=== PATIENT | female | born 1990 | race Caucasian/White ===

== ENCOUNTER 2022-04-15 14:02 | Inpatient (IN) | payer OTHER ==
[2022-04-15] MEDS ORDERED: ACETAMINOPHEN TAB 500 MG TAB PO STA (15:56)
[2022-04-15] MEDS ORDERED: ONDANSETRON 4 MG/2 ML VIAL IVP STA (15:57)
[2022-04-15] MEDS ORDERED: cefTRIAXone IN SWFI 1,000 MG/10 ML SYRINGE IVP STA (16:00)
[2022-04-15] MEDS ORDERED: CLINDAMYCIN 900 MG in DEXTROSE 5% IN WATER 50 ML IVPB STA ×2 (16:12)
[2022-04-15 17:25] LABS: Basophils % (A) 0 %; Eosinophils # (A) 0.1 k/uL (0-0.7); Eosinophils % (A) 1 %; HCT 37.5 % (34.0-46.0); HGB 13.4 gm/dL (11.4-16.0); Lymphocytes % (A) 11 %; MCH 32.7 pg (25.0-35.0); MCHC 35.9 g/dL (31.0-37.0); Mean Platelet Volume 7.3; Monocytes # (A) 0.4 k/uL (0-1.0); Monocytes % (A) 5 %; Neutrophils # (A) 6.7 k/uL (1.3-7.7); Neutrophils % (A) 80 %; Platelet Count 276 k/uL (150-450); RBC 4.12 m/uL (3.80-5.40); WBC 8.4 k/uL (3.8-10.6)
[2022-04-15 17:29] LABS: Appearance,Urine Clear (Clear); Bilirubin,Urine Negative (Negative); Blood,Urine Small (Negative); Color,Urine Yellow; Glucose,Urine (UA) Negative (Negative); Ketones,Urine Negative (Negative); Leukocyte Esterase,Urine Negative (Negative); Mucus,Urine Few /hpf; Nitrite,Urine Negative (Negative); Protein,Urine Trace (Negative); RBC,Urine 6 /hpf (0-5); Specific Gravity,Urine 1.027 (1.001-1.035); Squamous Epithelial Cell,Urine 5 /hpf (0-4); Urobilinogen,Urine <2.0 mg/dL (<2.0); WBC,Urine 1 /hpf (0-5)
[2022-04-15 17:38] LABS: ALT 14 U/L (4-34); AST 20 U/L (14-36); African American GFR (CKD) >90 (>60 ml/min/1.73 sqM); Albumin 3.7 g/dL (3.5-5.0); Alkaline Phosphatase 50 U/L (38-126); Anion Gap 7 mmol/L; Blood Urea Nitrogen 9 mg/dL (7-17); Calcium 8.5 mg/dL (8.4-10.2); Carbon Dioxide 21 mmol/L (22-30); Chloride 107 mmol/L (98-107); Glucose 85 mg/dL (74-99); Non-African American GFR(CKD) >90 (>60 ml/min/1.73 sqM); Potassium 3.6 mmol/L (3.5-5.1); Sodium 135 mmol/L (137-145); Total Bilirubin 0.4 mg/dL (0.2-1.3); Total Protein 6.2 g/dL (6.3-8.2)
--- NOTE | 2022-04-15 18:18 | ED ---
Skin/Abscess/FB HPI - General Chief complaint: Skin/Abscess/Foreign Body Stated complaint: Left Hand Swelling,12 Weeks Preg Time Seen by Provider: 04/15/22 15:51 Source: patient Mode of arrival: ambulatory Limitations: no limitations - History of Present Illness Initial comments: Patient is a 31-year-old female who presents to the emergency department with a chief complaint of left middle finger swelling. Patient states she woke up with swelling of the left middle finger 4 days ago. Over the past 4 days the swelling has gotten worse with redness that streaks up her arm. Patient is in a lot of pain. Denies fever and chills. Does admit to nausea however she is currently 12 weeks . No vomiting. Does admit to history of cellulitis. Denies MRSA history. 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 Patient has placenta previa and currently admits to vaginal bleeding, no change from her last ultrasound 1 week ago. Ultrasound performed every 2 weeks due to placenta previa. Denies abdominal pain, burning with urination. - Related Data Home Medications Medication Instructions Recorded Confirmed Agu-Hshk-Ynysb Acid 1 cap PO DAILY 04/15/22 04/15/22 [-U Capsule (formulary)] Allergies Allergy/AdvReac Type Severity Reaction Status Date / Time No Known Allergies Allergy Verified 04/15/22 17:03 Review of Systems ROS Statement: Those systems with pertinent positive or pertinent negative responses have been documented in the HPI. ROS Other: All systems not noted in ROS Statement are negative. Past Medical History Additional Past Medical History / Comment(s): [id number] History of Any Multi-Drug Resistant Organisms: None Reported Past Surgical History: Section Past Psychological History: No Psychological Hx Reported Smoking Status: Never smoker Past Alcohol Use History: None Reported Past Drug Use History: None Reported General Exam Limitations: no limitations General appearance: alert, in no apparent distress Respiratory exam: Present: normal lung sounds bilaterally. Absent: respiratory distress, wheezes, rales, rhonchi, stridor Cardiovascular Exam: Present: regular rate, normal rhythm, normal heart sounds. Absent: systolic murmur, diastolic murmur, rubs, gallop, clicks Extremities exam: Present: full ROM (active, tolerable pain), normal capillary refill, other (swelling and erythema of left middle finger. muliple punctate lesions with purulence. lymphatic red streaking traveling up dorsal left hand, anterior forearm, and up to mid biceps.) Neurological exam: Present: alert, oriented X3, CN II-XII intact Psychiatric exam: Present: normal affect, normal mood Skin exam: Present: warm, dry, intact, normal color. Absent: rash Course Vital Signs 04/15/22 04/15/22 14:23 16:50 Temperature 98.9 F Pulse Rate 92 82 Respiratory 16 18 Rate Blood Pressure 115/71 121/63 O2 Sat by Pulse 99 100 Oximetry Medical Decision Making - Medical Decision Making This is a 31 year old female presenting with left finger swelling. Cellulitis noted in the left middle finger and traveling up the dorsum of left hand with lymphatic involvement of the left upper extremity. Full range of motion with tolerable pain. Neurovascularly intact. No fever, no tachycardia. Laboratory studies obtained. There is no leukocytosis. Rocephin and clindamycin given. Case discussed with patient. Patient will benefit from a dmission with IV antibiotics. She is agreeable to admission. Case discussed with Medhat Singh who accepts admission. Infectious disease on consult. Dr. Ohara is my attending. - Lab Data Result diagrams: 04/15/22 17:04 04/15/22 17:04 Lab Results 04/15/22 04/15/22 04/15/22 Range/Units 17:04 17:04 17:04 WBC 8.4 (3.8-10.6) k/uL RBC 4.12 (3.80-5.40) m/uL Hgb 13.4 (11.4-16.0) gm/dL Hct 37.5 (34.0-46.0) % MCV 91.0 (80.0-100.0) fL MCH 32.7 (25.0-35.0) pg MCHC 35.9 (31.0-37.0) g/dL RDW 13.0 (11.5-15.5) % Plt Count 276 (150-450) k/uL MPV 7.3 Neutrophils % 80 % Lymphocytes % 11 % Monocytes % 5 % Eosinophils % 1 % Basophils % 0 % Neutrophils # 6.7 (1.3-7.7) k/uL Lymphocytes # 1.0 (1.0-4.8) k/uL Monocytes # 0.4 (0-1.0) k/uL Eosinophils # 0.1 (0-0.7) k/uL Basophils # 0.0 (0-0.2) k/uL Sodium 135 L (137-145) mmol/L Potassium 3.6 (3.5-5.1) mmol/L Chloride 107 (98-107) mmol/L Carbon Dioxide 21 L (22-30) mmol/L Anion Gap 7 mmol/L BUN 9 (7-17) mg/dL Creatinine 0.41 L (0.52-1.04) mg/dL Est GFR (CKD-EPI)AfAm >90 (>60 ml/min/1.73 sqM) Est GFR (CKD-EPI)NonAf >90 (>60 ml/min/1.73 sqM) Glucose 85 (74-99) mg/dL Plasma Lactic Acid [place] (0.7-2.0) mmol/L Calcium 8.5 (8.4-10.2) mg/dL Total Bilirubin 0.4 (0.2-1.3) mg/dL AST 20 (14-36) U/L ALT 14 (4-34) U/L Alkaline Phosphatase 50 (38-126) U/L Total Protein 6.2 L (6.3-8.2) g/dL Albumin 3.7 (3.5-5.0) g/dL Urine Color Yellow Urine Appearance Clear (Clear) Urine pH 6.0 (5.0-8.0) Ur Specific [place] 1.027 (1.001-1.035) Urine Protein Trace H (Negative) Urine Glucose (UA) Negative (Negative) Urine Ketones Negative (Negative) Urine Blood Small H (Negative) Urine Nitrite Negative (Negative) Urine Bilirubin Negative (Negative) Urine Urobilinogen <2.0 (<2.0) mg/dL Ur Leukocyte Esterase Negative (Negative) Urine RBC 6 H (0-5) /hpf Urine WBC 1 (0-5) /hpf Ur Squamous Epith Cells 5 H (0-4) /hpf Urine Mucus Few H (None) /hpf 04/15/22 Range/Units 17:04 WBC (3.8-10.6) k/uL RBC (3.80-5.40) m/uL Hgb (11.4-16.0) gm/dL Hct (34.0-46.0) % MCV (80.0-100.0) fL MCH (25.0-35.0) pg MCHC (31.0-37.0) g/dL RDW (11.5-15.5) % Plt Count (150-450) k/uL MPV Neutrophils % % Lymphocytes % % Monocytes % % Eosinophils % % Basophils % % Neutrophils # (1.3-7.7) k/uL Lymphocytes # (1.0-4.8) k/uL Monocytes # (0-1.0) k/uL Eosinophils # (0-0.7) k/uL Basophils # (0-0.2) k/uL Sodium (137-145) mmol/L Potassium (3.5-5.1) mmol/L Chloride (98-107) mmol/L Carbon Dioxide (22-30) mmol/L Anion Gap mmol/L BUN (7-17) mg/dL Creatinine (0.52-1.04) mg/dL Est GFR (CKD-EPI)AfAm (>60 ml/min/1.73 sqM) Est GFR (CKD-EPI)NonAf (>60 ml/min/1.73 sqM) Glucose (74-99) mg/dL Plasma Lactic Acid [place] 1.6 (0.7-2.0) mmol/L Calcium (8.4-10.2) mg/dL Total Bilirubin (0.2-1.3) mg/dL AST (14-36) U/L ALT (4-34) U/L Alkaline Phosphatase (38-126) U/L Total Protein (6.3-8.2) g/dL Albumin (3.5-5.0) g/dL Urine Color Urine Appearance (Clear) Urine pH (5.0-8.0) Ur Specific [place] (1.001-1.035) Urine Protein (Negative) Urine Glucose (UA) (Negative) Urine Ketones (Negative) Urine Blood (Negative) Urine Nitrite (Negative) Urine Bilirubin (Negative) Urine Urobilinogen (<2.0) mg/dL Ur Leukocyte Esterase (Negative) Urine RBC (0-5) /hpf Urine WBC (0-5) /hpf Ur Squamous Epith Cells (0-4) /hpf Urine Mucus (None) /hpf Disposition Clinical Impression: Cellulitis of left middle finger, Cellulitis of left hand, Lymphadenitis, and infectious disease Disposition: ADMITTED IP TO THIS HOSP Condition: Good Referrals: None,Stated [Primary Care Provider] - 1-2 days
[2022-04-15] MEDS: PRENATAL VIT-IRON-FOLIC ACID 1 EACH TABLET PO SCH (21:03)
[2022-04-15] MEDS: ACETAMINOPHEN TAB 325 MG TAB PO PRN (23:04)
[2022-04-15] MEDS: SODIUM CHLORIDE 0.9% 1,000 ML IV SCH (23:09)
[2022-04-16] MEDS: PRENATAL VIT-IRON-FOLIC ACID 1 EACH TABLET PO SCH (09:41)
[2022-04-16] MEDS: SODIUM CHLORIDE 0.9% 1,000 ML IV SCH ×2 (12:36→22:17)
[2022-04-16] MEDS: FAMOTIDINE 20 MG TAB PO SCH ×2 (12:40→20:53)
--- NOTE | 2022-04-16 13:23 | P.HPIM ---
History of Present Illness H&P Date: 04/16/22 This is a 31 year old female who is at 12 weeks gestation. She reports to the hospital with complaint of left middle finger swelling that began about 4 days ago progressively getting worse with streaks up her arm. She has significant pain and reports feeling the pain up into the left axilla and through the left breast and chest. She does report feeling dizzy and lightheaded and overall not well. Prior history of staph infection she states about 14 years ago, denies MRSA. This is her 5th , with 3 live births, prior history of . Patient has placenta previa and has vaginal bleeding with last ultrasound being 1 week ago she undergoes routine ultrasound every 2 weeks. 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 No transvaginal ultrasounds. On admission sodium level 135, hgb stable at 13.4, no white count. Urine showing small blood trace protein. She is afebrile, blood pressure 93/61. Cultures are taken and patient is given a dose of clindamycin and ceftriaxone. Consult is placed to infectious disease services. Blood culture x 2 also taken. She is receiving vitamin and also gentle hydration. Will be started patient on pepcid BID for prophylaxis. REVIEW OF SYSTEMS: CONSTITUTIONAL: No fever, no malaise, no fatigue. HEENT: No recent visual problems or hearing problems. Denied any sore throat. CARDIOVASCULAR: No chest pain, orthopnea, PND, no palpitations, no syncope. PULMONARY: No shortness of breath, no cough, no hemoptysis. GASTROINTESTINAL: No diarrhea, no nausea, no vomiting, no abdominal pain. NEUROLOGICAL: No headaches, no weakness, no numbness. HEMATOLOGICAL: Denies any bleeding or petechiae. GENITOURINARY: Denies any burning micturition, frequency, or urgency. MUSCULOSKELETAL/RHEUMATOLOGICAL: Reports pain to left middle finger up into arm and left axilla breast and chest wall ENDOCRINE: Denies any polyuria or polydipsia. The rest of the 14-point review of systems is negative. PHYSICAL EXAMINATION: GENERAL: The patient is alert and oriented x3, not in any acute distress. Well developed, well nourished. HEENT: Pupils are round and equally reacting to light. EOMI. No scleral icterus. No conjunctival pallor. Normocephalic, atraumatic. No pharyngeal erythema. No thyromegaly. CARDIOVASCULAR: S1 and S2 present. No murmurs, rubs, or gallops. PULMONARY: Chest is clear to auscultation, no wheezing or crackles. ABDOMEN: Soft, nontender, nondistended, normoactive bowel sounds. No palpable organomegaly. MUSCULOSKELETAL: No joint swelling or deformity. EXTREMITIES: No cyanosis, clubbing, or pedal edema. NEUROLOGICAL: Gross neurological examination did not reveal any focal deficits. SKIN: No rashes. The first pip joint left middle finger with significant erythema and swelling. There is also streaking up the forearm which has improved as compared to the outline Assessment and Plan Assessment Left upper extremity cellulitis with possible sepsis, present on admission 12 weeks gestation Placenta Previa Hyponatremia hypovolemic GI prophylaxis DVT prophylaxis SCDs Full Code Plan Continue IV hydration Continue IV antibiotic per infectious disease Pending culture from left third finger GI prophylaxis Discharge in the next 24 hours with ID recommendations The impression and plan of care has been dictated by Christiana Mulligan, Nurse Practitioner as directed. Dr. Veronica MD I have performed a history and physical examination and medical decision making of this patient, discussed the same with the dictator, and agree with the dictators assessment and plan as written, documented as a scribe. Based on total visit time, I have performed more than 50% of this visit. Past Medical History Additional Past Medical History / Comment(s): [id number] History of Any Multi-Drug Resistant Organisms: None Reported Past Surgical History: Section Past Psychological History: No Psychological Hx Reported Smoking Status: Never smoker Past Alcohol Use History: None Reported Past Drug Use History: None Reported Medications and Allergies Home Medications Medication Instructions Recorded Confirmed Type Jzg-Wghq-Wkxwa Acid 1 cap PO DAILY 04/15/22 04/15/22 History [-U Capsule (formulary)] Allergies Allergy/AdvReac Type Severity Reaction Status Date / Time No Known Allergies Allergy Verified 04/15/22 17:03 Physical Exam Vitals: Vital Signs Temp Pulse Pulse Resp BP BP Pulse Ox 04/16/22 06:39 98.2 F 73 12 93/61 96 04/16/22 02:12 98.2 F 75 17 98/61 99 04/15/22 21:00 98.5 F 79 18 110/64 99 04/15/22 18:48 89 18 105/57 98 04/15/22 16:50 82 18 121/63 100 04/15/22 14:23 98.9 F 92 16 115/71 99 Intake and Output 04/15/22 04/16/22 04/16/22 22:59 06:59 14:59 Other: # Voids 1 2 Weight 63.503 kg Results CBC & Chem 7: 04/15/22 17:04 04/15/22 17:04 Labs: Abnormal Lab Results - Last 24 Hours (Table) 04/15/22 04/15/22 Range/Units 17:04 17:04 Sodium 135 L (137-145) mmol/L Carbon Dioxide 21 L (22-30) mmol/L Creatinine 0.41 L (0.52-1.04) mg/dL Total Protein 6.2 L (6.3-8.2) g/dL Urine Protein Trace H (Negative) Urine Blood Small H (Negative) Urine RBC 6 H (0-5) /hpf Ur Squamous Epith Cells 5 H (0-4) /hpf Urine Mucus Few H (None) /hpf Microbiology - Last 24 Hours (Table) 04/15/22 20:59 Anaerobic Culture - Preliminary Finger - Left Third 04/15/22 20:59 Wound Culture - Preliminary Finger - Left Third Thrombosis Risk Factor Assmnt - Choose All That Apply Any of the Below Risk Factors Present?: No Other Risk Factors: No Other congenital or acquired thrombophilia - If yes, enter type in comment: No Thrombosis Risk Factor Assessment Level: Very Low Risk Assessment and Plan Time with Patient: Less than 30
[2022-04-16] MEDS: ACETAMINOPHEN TAB 325 MG TAB PO PRN ×2 (14:45→20:52)
[2022-04-16] MEDS: diphenhydrAMINE 25 MG CAP PO PRN (14:46)
--- NOTE | 2022-04-16 23:52 | P.CONS ---
History of Present Illness - Reason for Consult Consult date: 04/16/22 - History of Present Illness patient is a 31-year-old female who is currently 12 weeks presenting to the hospital for evaluation of left middle finger swelling and redness apparently started about 4 days ago before presentation to the hospital patient denies any history of any trauma patient mention she noticed small blister which was itching in nature about 8 patient noticing the left middle finger becoming swollen and red and noticed the redness spreading to the dorsal aspect of her hand and arm area patient describing the pain to be more of a burning to sharp 6-7 out of 10 and radiation with associated swelling redness but no foul-smelling drainage patient on presentation to the hospital was afebrile and no fever have been recorded subsequently patient did have normal white count kidney function has been normal liver enzymes are normal patient did have local cultures obtained which are currently pending patient did receive a dose of Rocephin and clindamycin in the ER infectious he was consulted for further management of antibiotic therapy Past Medical History Additional Past Medical History / Comment(s): [id number] History of Any Multi-Drug Resistant Organisms: None Reported Past Surgical History: Section Past Psychological History: No Psychological Hx Reported Smoking Status: Never smoker Past Alcohol Use History: None Reported Past Drug Use History: None Reported Medications and Allergies Home Medications Medication Instructions Recorded Confirmed Type Rly-Ntqe-Chlov Acid 1 cap PO DAILY 04/15/22 04/15/22 History [-U Capsule (formulary)] Allergies Allergy/AdvReac Type Severity Reaction Status Date / Time No Known Allergies Allergy Verified 04/15/22 17:03 Physical Exam Vitals: Vital Signs Temp Pulse Pulse Resp BP BP Pulse Ox 04/16/22 06:39 98.2 F 73 12 93/61 96 04/16/22 02:12 98.2 F 75 17 98/61 99 04/15/22 21:00 98.5 F 79 18 110/64 99 04/15/22 18:48 89 18 105/57 98 04/15/22 16:50 82 18 121/63 100 04/15/22 14:23 98.9 F 92 16 115/71 99 Intake and Output 04/15/22 04/16/22 04/16/22 22:59 06:59 14:59 Other: # Voids 1 2 Weight 63.503 kg Results CBC & Chem 7: 04/15/22 17:04 04/15/22 17:04 Labs: Abnormal Lab Results - Last 24 Hours (Table) 04/15/22 04/15/22 Range/Units 17:04 17:04 Sodium 135 L (137-145) mmol/L Carbon Dioxide 21 L (22-30) mmol/L Creatinine 0.41 L (0.52-1.04) mg/dL Total Protein 6.2 L (6.3-8.2) g/dL Urine Protein Trace H (Negative) Urine Blood Small H (Negative) Urine RBC 6 H (0-5) /hpf Ur Squamous Epith Cells 5 H (0-4) /hpf Urine Mucus Few H (None) /hpf Microbiology - Last 24 Hours (Table) 04/15/22 20:59 Anaerobic Culture - Preliminary Finger - Left Third 04/15/22 20:59 Wound Culture - Preliminary Finger - Left Third Assessment and Plan Plan: 1patient presented to hospital with left middle finger abscess and cellulitis spreading to the left arm area likely from gram-positive skin adriano patient is not at risk factor for MRSA infection and with some improvement in the cellulitis with Rocephin and clinda could be MSSA. 2patient who is currently 12 weeks , limiting number of antibiotics safe to use. 3we will start the patient cefazolin 2 g every 8 hours. We will follow on clinical condition and cultures to further adjust medication if needed Thank you for this consultation will follow this patient along with you Time with Patient: Greater than 30
[2022-04-17] MEDS: PRENATAL VIT-IRON-FOLIC ACID 1 EACH TABLET PO SCH (08:40)
[2022-04-17] MEDS: FAMOTIDINE 20 MG TAB PO SCH ×2 (08:40→20:13)
[2022-04-17 09:17] LABS: Basophils # (A) 0.05 X 10*3/uL (0.00-0.10); Basophils % (A) 0.9 %; Eosinophils # (A) 0.09 X 10*3/uL (0.04-0.35); Eosinophils % (A) 1.6 %; HGB 12.4 g/dL (12.0-15.0); Immature Grans, Automated 1.2 %; Lymphocytes # (A) 1.21 X 10*3/uL (0.90-5.00); Lymphocytes % (A) 21.3 %; MCH 31.3 pg (27.0-32.0); MCHC 33.5 g/dL (32.0-37.0); MCV 93.4 fL (80.0-97.0); Monocytes # (A) 0.39 X 10*3/uL (0.20-1.00); Monocytes % (A) 6.9 %; NRBC Per 100 WBC 0 /100 WBCS (0.0-0.0); Neutrophils # (A) 3.88 X 10*3/uL (1.80-7.70); Neutrophils % (A) 68.1 %; Platelet Count 273 X 10*3/uL (140-440); RBC 3.96 X 10*6/uL (4.10-5.20); RDW 13.1 % (11.5-14.5); WBC 5.69 X 10*3/uL (4.50-10.00)
[2022-04-17] MEDS ORDERED: ONDANSETRON 4 MG/2 ML VIAL IVP PRN (09:37)
[2022-04-17 09:46] LABS: ALT 14 U/L (8-44); AST 18 U/L (13-35); African American GFR (CKD) 148.4 (60.0-200.0); Albumin 3.4 g/dL (3.8-4.9); Albumin/Globulin Ratio 1.55 (1.60-3.17); Alkaline Phosphatase 55 U/L (41-126); Blood Urea Nitrogen 9.3 mg/dL (9.0-27.0); Calcium 8.7 mg/dL (8.7-10.3); Chloride 107 mmol/L (96-109); Globulin 2.2 g/dL (1.6-3.3); Glucose 83 mg/dL (70-110); Non-African American GFR(CKD) 128.1 (60.0-200.0); Potassium 4.1 mmol/L (3.5-5.5); Sodium 137 mmol/L (135-145); Total Bilirubin <0.15 mg/dL (0.30-1.20); Total Protein 5.6 g/dL (6.2-8.2)
--- NOTE | 2022-04-17 11:12 | US ---
EXAMINATION TYPE: Transabdominal DATE OF EXAM: 04/17/2022 10:56 AM COMPARISON: NONE CLINICAL HISTORY: 12 weeks gestation, history of placenta previa. EXAM PERFORMED: Transabdominal (TA) EXAM MEASUREMENTS: GESTATIONAL AGE / DATING Physician Established: (13 weeks/4 days) EDC: 10/19/2022 Dates by LMP: LMP unknown ( weeks/ days) EDC: Dates by First Scan: No previous this is first scan Dates by Current Scan for: (13 weeks/5 days) EDC: 10/18/2022 MATERNAL ANATOMY Uterus: 17.0 x 6.7 x 10.5cm Right Ovary: 3.0 x 1.7 x 2.2cm Left Ovary: 2.9 x 2.3 x 3.6cm Post CDS / Adnexa: wnl Presence of free fluid: no Presence of corpus luteal cyst: left ovary: 1.9 x 1.7 x 1.6cm Presence of subchorionic bleed: no GESTATION / SURVEY CRL: 7.6cm (13 weeks/5 days) Yolk Sac (normal less than 6mm): not seen Heart Rate: 158 bpm Rhythm: Normal IUP: Viable IUP Posterior placenta - 0.8cm from internal cervical os IMPRESSION: 1. Viable intrauterine with ultrasound age 13 weeks 5 days. 2. Low-lying placenta which is is approximately 0.8 cm from the internal os. Continued attention on follow-up imaging.
--- NOTE | 2022-04-17 11:42 | P.OBCN ---
History of Present Illness Consult date: 04/17/22 Reason for consult: early problem (placenta previa) Chief complaint: 12 week , placenta previa History of present illness: 31-year-old at approximately 12 weeks of gestation presented tilted to the hospital 2 days ago with complaints of skin infection on her right middle finger. Patient was admitted and IV antibiotics were begun. Blood cultures were positive per patient and she continues to be on IV antibiotics. Patient states she receives of [facility] in [place] at [facility]. Placenta previa was a known condition they were following. Patient states she has had no vaginal bleeding for about 5 days. 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 32 weeks for breech presentation 2. Repeat section at term 3. Missed AB at 20 weeks with D&C 4. Repeat section at term 5. Current Review of Systems Constitutional: Denies chills, Denies fatigue, Denies fever Ears, nose, mouth and throat: Denies headache Cardiovascular: Denies leg edema Respiratory: Denies dyspnea Genitourinary: Reports Past Medical History Additional Past Medical History / Comment(s): [id number] History of Any Multi-Drug Resistant Organisms: None Reported Past Surgical History: Section Past Psychological History: No Psychological Hx Reported Smoking Status: Never smoker Past Alcohol Use History: None Reported Past Drug Use History: None Reported Medications and Allergies Home Medications Medication Instructions Recorded Confirmed Type Amu-Srkq-Dmydh Acid 1 cap PO DAILY 04/15/22 04/15/22 History [-U Capsule (formulary)] Allergies Allergy/AdvReac Type Severity Reaction Status Date / Time No Known Allergies Allergy Verified 04/15/22 17:03 Exam Osteopathic Statement: *. No significant issues noted on an osteopathic structural exam other than those noted in the History and Physical/Consult. Vital Signs Temp Pulse Resp BP BP Pulse Ox 04/17/22 07:00 97.8 F 85 18 106/68 99 04/17/22 06:33 98.7 F 77 18 104/67 98 04/17/22 01:45 98.3 F 81 16 99/63 100 04/16/22 19:04 98.3 F 82 16 107/61 97 04/16/22 16:34 98.5 F 77 17 107/69 04/16/22 15:00 97.7 F 83 18 100/64 100 04/16/22 12:03 98.2 F 76 12 114/72 Intake and Output 04/16/22 04/17/22 04/17/22 22:59 06:59 14:59 Other: Voiding Method Toilet # Voids 1 2 Targeted physical exam is performed in this date and cue selector a well-nourished well-developed female in no acute distress, breathing is nonlabored, heart has a regular rate and rhythm, abdomen is soft and nontender ultrasound was performed for heart tones Results Result Diagrams: 04/17/22 03:24 04/17/22 03:24 Abnormal Lab Results - Last 24 Hours (Table) 04/17/22 04/17/22 Range/Units 03:24 03:24 RBC 3.96 L (4.10-5.20) X 10*6/uL Hct 37.0 L (37.2-46.3) % MPV 9.0 L (9.5-12.2) fL Immature Gran # 0.07 H (0.00-0.04) X 10*3/uL Creatinine 0.5 L (0.6-1.5) mg/dL Total Bilirubin <0.15 L (0.30-1.20) mg/dL C-Reactive Protein 3.90 H (0.00-0.80) mg/dL Total Protein 5.6 L (6.2-8.2) g/dL Albumin 3.4 L (3.8-4.9) g/dL Albumin/Globulin Ratio 1.55 L (1.60-3.17) g/dL Microbiology - Last 24 Hours (Table) 04/15/22 20:59 Gram Stain - Preliminary Finger - Left Third Wound Culture - Preliminary Presumptive Staph aureus 04/15/22 17:17 Blood Culture Gram Stain - Preliminary Blood 04/15/22 17:01 Blood Culture Gram Stain - Final Blood Blood Culture - Final Micrococcus species 04/15/22 17:17 Blood Culture - Final Blood 04/15/22 17:01 Blood Culture - Final Blood 04/15/22 20:59 Anaerobic Culture - Preliminary Finger - Left Third Assessment and Plan (1) 12 weeks gestation of Current Visit: Yes Status: Acute Code(s): Z3A.12 - 12 WEEKS GESTATION OF SNOMED Code(s): 46164302 (2) Placenta previa Current Visit: Yes Status: Acute Code(s): O44.00 - COMPLETE PLACENTA PREVIA NOS OR WITHOUT HEMOR, UNSP TRI SNOMED Code(s): 44988579 Plan: 31-year-old 013 at approximately 12 weeks of gestation was admitted 2 days ago with finger cellulitis. Patient has been receiving care here from [facility]. Patient is a history of 3 prior C-sections. Patient has known placenta previa, ultrasound was performed prior to my consult. Ultrasound with viable 12 week fetus, posterior placenta previa is appreciated 0.8 cm from the os. She denies any current bleeding. Patient states she will most likely be discharged tomorrow. We'll plan follow-up at [facility] as scheduled. Patient is counseled should she have any concerns, she is more than welcome to call [facility].
[2022-04-17] MEDS: ACETAMINOPHEN TAB 325 MG TAB PO PRN ×2 (11:53→20:13)
[2022-04-17] MEDS: diphenhydrAMINE 25 MG CAP PO PRN (11:56)
[2022-04-17] MEDS: SODIUM CHLORIDE 0.9% 1,000 ML IV SCH ×2 (12:04→16:07)
[2022-04-17] MEDS: ONDANSETRON 4 MG/2 ML VIAL IVP PRN (13:25)
--- NOTE | 2022-04-17 15:00 | P.PN ---
Subjective Progress Note Date: 04/17/22 This is a 31 year old female who is at 12 weeks gestation. She reports to the hospital with complaint of left middle finger swelling that began about 4 days ago progressively getting worse with streaks up her arm. She has significant pain and reports feeling the pain up into the left axilla and through the left breast and chest. She does report feeling dizzy and lightheaded and overall not well. Prior history of staph infection she states about 14 years ago, denies MRSA. This is her 5th , with 3 live births, prior history of . Patient has placenta previa and has vaginal bleeding with last ultrasound being 1 week ago she undergoes routine ultrasound every 2 weeks. Patient follows with rails developer out of [place] and was supposed to see today. No transvaginal ultrasounds. On admission sodium level 135, hgb stable at 13.4, no white count. Urine showing small blood trace protein. She is afebrile, blood pressure 93/61. Cultures are taken and patient is given a dose of clindamycin and ceftriaxone. Consult is placed to infectious disease services. Blood culture x 2 also taken. She is receiving vitamin and also gentle hydration. Will be started patient on pepcid BID for prophylaxis. 04/17/2022 Patient is evaluated today resting in bed continues to report intermittent feelings of dizzines and also nausea. Zofran has been ordered. Blood cultures are showing micrococcus species and also presumptive staph aureus from left third finger. Repeat blood cultures taken today. Continues on IV hydration, infectious disease is following. Patient has been placed on IV cefazolin. Today she complains of itching and is given oral benadryl. There was concern by nursing for progression of rash and for this reason cefazolin has been stopped. Pending recommendations from ID regarding antibiotic coverage. Sodium improved to 137. Blood pressure 97/58. OB will be consulted as well. Review of Systems Constitutional: Denied any fatigue denied any fever, reports dizziness Cardio vascular: denied any chest pain, palpitations Gastrointestinal: denied any vomiting, diarrhea, reports nausea Pulmonary: Denied any shortness of breath cough Neurologic denied any new focal deficits All inpatient medications were reviewed and appropriate changes in these medications as dictated in the interval history and assessment and plan. PHYSICAL EXAMINATION: GENERAL: The patient is alert and oriented x3, not in any acute distress. Well developed, well nourished. HEENT: Pupils are round and equally reacting to light. EOMI. No scleral icterus. No conjunctival pallor. Normocephalic, atraumatic. No pharyngeal erythema. No thyromegaly. CARDIOVASCULAR: S1 and S2 present. No murmurs, rubs, or gallops. PULMONARY: Chest is clear to auscultation, no wheezing or crackles. ABDOMEN: Soft, nontender, nondistended, normoactive bowel sounds. No palpable organomegaly. MUSCULOSKELETAL: No joint swelling or deformity. EXTREMITIES: No cyanosis, clubbing, or pedal edema. NEUROLOGICAL: Gross neurological examination did not reveal any focal deficits. SKIN: No rashes. The left middle finger with significant erythema and swelling. There is possible abscess also. Assessment and Plan Assessment Left upper extremity cellulitis and abscess left middle finger with sepsis, present on admission Gram positive bacteremia Placenta Previa at 13 weeks gestation Hyponatremia hypovolemic, resolved GI prophylaxis DVT prophylaxis SCDs Full Code Plan Continue IV hydration Continue IV antibiotics, cefazolin currently being held with concern for possible allergic reaction Continue with antiemetics and benadryl Continue all other supportive care Obstetrictian consultation and ultrasound Patient recommended for inpatient status as this patient is 13 weeks 5 days gestation confirmed by ultrasound found to have gram positive bacteremia source of infection likely left middle finger abscess and cellulitis to left upper extremity. Repeat blood cultures have been taken today. The impression and plan of care has been dictated by Nurse Nita Pr actitioner as directed. Dr. Veronica MD I have performed a history and physical examination and medical decision making of this patient, discussed the same with the dictator, and agree with the dicta tors assessment and plan as written, documented as a scribe. Based on total visit time, I have performed more than 50% of this visit. Objective - Vital Signs Vital signs: Vital Signs Temp 98.1 F 04/17/22 14:25 Pulse 79 04/17/22 14:25 Resp 18 04/17/22 14:25 BP 97/58 04/17/22 14:25 Pulse Ox 99 04/17/22 14:25 FiO2 Intake & Output 04/16/22 04/17/22 04/17/22 18:59 06:59 18:59 Intake Total 118 Balance 118 Intake: Oral 118 Other: Voiding Method Toilet # Voids 2 2 1 - Labs CBC & Chem 7: 04/17/22 03:24 04/17/22 03:24 Labs: Abnormal Lab Results - Last 24 Hours (Table) 04/17/22 04/17/22 Range/Units 03:24 03:24 RBC 3.96 L (4.10-5.20) X 10*6/uL Hct 37.0 L (37.2-46.3) % MPV 9.0 L (9.5-12.2) fL Immature Gran # 0.07 H (0.00-0.04) X 10*3/uL Creatinine 0.5 L (0.6-1.5) mg/dL Total Bilirubin <0.15 L (0.30-1.20) mg/dL C-Reactive Protein 3.90 H (0.00-0.80) mg/dL Total Protein 5.6 L (6.2-8.2) g/dL Albumin 3.4 L (3.8-4.9) g/dL Albumin/Globulin Ratio 1.55 L (1.60-3.17) g/dL Microbiology - Last 24 Hours (Table) 04/15/22 20:59 Gram Stain - Preliminary Finger - Left Third Wound Culture - Preliminary Presumptive Staph aureus 04/15/22 17:17 Blood Culture Gram Stain - Preliminary Blood 04/15/22 17:01 Blood Culture Gram Stain - Final Blood Blood Culture - Final Micrococcus species 04/15/22 17:17 Blood Culture - Final Blood 04/15/22 17:01 Blood Culture - Final Blood Assessment and Plan Time with Patient: Less than 30
[2022-04-17] MEDS ORDERED: ONDANSETRON 4 MG/2 ML VIAL IVP SCH (16:00)
--- NOTE | 2022-04-17 23:47 | P.PN ---
Subjective Progress Note Date: 04/17/22 Principal diagnosis: Left middle finger and hand cellulitis patient is a 31-year-old female who is currently 12 weeks presenting to the hospital for evaluation of left middle finger swelling and redness apparently started about 4 days ago before presentation to the hospital, patient local cultures currently showing staph aureus and also have a positive blood culture On today's evaluation that is 04/17/2022 the patient denies having any fever or any chills the patient left to middle finger pain and swelling has decreased patient denies having any chest pain or shortness of breath or cough no abdominal pain or diarrhea Objective - Vital Signs Vital signs: Vital Signs Temp 98.1 F 04/17/22 14:25 Pulse 79 04/17/22 14:25 Resp 18 04/17/22 14:25 BP 97/58 04/17/22 14:25 Pulse Ox 99 04/17/22 14:25 FiO2 Intake & Output 04/16/22 04/17/22 04/17/22 18:59 06:59 18:59 Intake Total 118 Balance 118 Intake: Oral 118 Other: Voiding Method Toilet # Voids 2 2 1 - Exam GENERAL DESCRIPTION: Middle-age female lying in bed in no distress RESPIRATORY SYSTEM: Unlabored breathing , decreased breath sounds at bases HEART: S1 S2 regular rate and rhythm , ABDOMEN: Soft , no tenderness EXTREMITIES: Left middle finger and left arm swelling redness slightly decreased - Labs CBC & Chem 7: 04/17/22 03:24 04/17/22 03:24 Labs: Abnormal Lab Results - Last 24 Hours (Table) 04/17/22 04/17/22 Range/Units 03:24 03:24 RBC 3.96 L (4.10-5.20) X 10*6/uL Hct 37.0 L (37.2-46.3) % MPV 9.0 L (9.5-12.2) fL Immature Gran # 0.07 H (0.00-0.04) X 10*3/uL Creatinine 0.5 L (0.6-1.5) mg/dL Total Bilirubin <0.15 L (0.30-1.20) mg/dL C-Reactive Protein 3.90 H (0.00-0.80) mg/dL Total Protein 5.6 L (6.2-8.2) g/dL Albumin 3.4 L (3.8-4.9) g/dL Albumin/Globulin Ratio 1.55 L (1.60-3.17) g/dL Microbiology - Last 24 Hours (Table) 04/15/22 20:59 Gram Stain - Preliminary Finger - Left Third Wound Culture - Preliminary Presumptive Staph aureus 04/15/22 17:17 Blood Culture Gram Stain - Preliminary Blood 04/15/22 17:01 Blood Culture Gram Stain - Final Blood Blood Culture - Final Micrococcus species 04/15/22 17:17 Blood Culture - Final Blood 04/15/22 17:01 Blood Culture - Final Blood Assessment and Plan (1) Cellulitis of left hand Current Visit: Yes Status: Acute Code(s): L03.114 - CELLULITIS OF LEFT UPPER LIMB SNOMED Code(s): 48356188 (2) Cellulitis of left middle finger Current Visit: Yes Status: Acute Code(s): L03.012 - CELLULITIS OF LEFT FINGER SNOMED Code(s): 72473406 Plan: 1patient presented to hospital with left middle finger abscess and cellulitis spreading to the left arm area likely from gram-positive skin adriano patient is not at risk factor for MRSA infection and with some improvement in the celluliti s with Rocephin and clinda could be MSSA. 2patient who is currently 12 weeks , limiting number of antibiotics safe to use. 3patient local culture with staph aureus possible MSSA blood culture with the micrococcus likely contaminate will wait for repeat blood cultures to finalize and sensitivity on staph aureus to be finalize 4patient to continue with the cefazolin and monitored course closely Time with Patient: Less than 30
[2022-04-18] MEDS: ONDANSETRON 4 MG/2 ML VIAL IVP PRN (00:33)
[2022-04-18] MEDS: diphenhydrAMINE 25 MG CAP PO PRN ×3 (00:57→20:33)
[2022-04-18] MEDS: SODIUM CHLORIDE 0.9% 1,000 ML IV SCH ×4 (00:57→23:05)
[2022-04-18] MEDS: ACETAMINOPHEN TAB 325 MG TAB PO PRN ×2 (08:10→16:00)
[2022-04-18] MEDS: FAMOTIDINE 20 MG TAB PO SCH ×2 (08:10→20:22)
[2022-04-18] MEDS: PRENATAL VIT-IRON-FOLIC ACID 1 EACH TABLET PO SCH (08:10)
[2022-04-18] MEDS: DOCUSATE 100 MG CAP PO SCH ×2 (11:12→20:22)
[2022-04-18] MEDS ORDERED: HYDROCORTISONE 1% CREAM 30 GM TUBE TOPICAL PRN (11:26)
--- NOTE | 2022-04-18 17:20 | P.PN ---
Subjective Progress Note Date: 04/18/22 This is a 31 year old female who is at 12 weeks gestation. She reports to the hospital with complaint of left middle finger swelling that began about 4 days ago progressively getting worse with streaks up her arm. She has significant pain and reports feeling the pain up into the left axilla and through the left breast and chest. She does report feeling dizzy and lightheaded and overall not well. Prior history of staph infection she states about 14 years ago, denies MRSA. This is her 5th , with 3 live births, prior history of . Patient has placenta previa and has vaginal bleeding with last ultrasound being 1 week ago she undergoes routine ultrasound every 2 weeks. Patient follows with mix technician out of [place] and was supposed to see today. No transvaginal ultrasounds. On admission sodium level 135, hgb stable at 13.4, no white count. Urine showing small blood trace protein. She is afebrile, blood pressure 93/61. Cultures are taken and patient is given a dose of clindamycin and ceftriaxone. Consult is placed to infectious disease services. Blood culture x 2 also taken. She is receiving vitamin and also gentle hydration. Will be started patient on pepcid BID for prophylaxis. 04/17/2022 Patient is evaluated today resting in bed continues to report intermittent feelings of dizzines and also nausea. Zofran has been ordered. Blood cultures are showing micrococcus species and also presumptive staph aureus from left third finger. Repeat blood cultures taken today. Continues on IV hydration, infectious disease is following. Patient has been placed on IV cefazolin. Today she complains of itching and is given oral benadryl. There was concern by nursing for progression of rash and for this reason cefazolin has been stopped. Pending recommendations from ID regarding antibiotic coverage. Sodium improved to 137. Blood pressure 97/58. OB will be consulted as well. 04/18/2022 Patient is evaluated today on medical floor. Continues on IV cefazolin. Has rash developing to left middling finger. Blood culture showing micrococcus species. Wound culture showing staphylococcus aureus. Repeat blood cultures pending. Infectious disease following. Continue with tylenol and benadryl for headache. Review of Systems Constitutional: Denies fever, reports headache Cardio vascular: denied any chest pain, palpitations Gastrointestinal: denied any vomiting, diarrhea, reports nausea Pulmonary: Denied any shortness of breath cough Neurologic denied any new focal deficits All inpatient medications were reviewed and appropriate changes in these medications as dictated in the interval history and assessment and plan. PHYSICAL EXAMINATION: GENERAL: The patient is alert and oriented x3, not in any acute distress. Well developed, well nourished. HEENT: Pupils are round and equally reacting to light. EOMI. No scleral icterus. No conjunctival pallor. Normocephalic, atraumatic. No pharyngeal erythema. No thyromegaly. CARDIOVASCULAR: S1 and S2 present. No murmurs, rubs, or gallops. PULMONARY: Chest is clear to auscultation, no wheezing or crackles. ABDOMEN: Soft, nontender, nondistended, normoactive bowel sounds. No palpable organomegaly. MUSCULOSKELETAL: No joint swelling or deformity. EXTREMITIES: No cyanosis, clubbing, or pedal edema. NEUROLOGICAL: Gross neurological examination did not reveal any focal deficits. SKIN: No rashes. The left middle finger with significant erythema and swelling. Swelling has improved. Developed a vesicular rash to the left middle finger Assessment and Plan Assessment Left upper extremity cellulitis and abscess left middle finger with sepsis, present on admission Gram positive bacteremia possible contaminent. Placenta Previa at 13 weeks gestation Hyponatremia hypovolemic, resolved GI prophylaxis DVT prophylaxis SCDs Full Code Plan Continue IV hydration Continue IV antibiotics, cefazolin Continue with antiemetics and benadryl Continue all other supportive care Obstetrictian consultation and ultrasound Possible D/C in the next 24 hours pending final repeat blood cultures and ID recommendations The impression and plan of care has been dictated by Christiana Mulligan, Nurse Practitioner as directed. Dr. Veronica MD I have performed a history and physical examination and medical decision making of this patient, discussed the same with the dictator, and agree with the dictators assessment and plan as written, documented as a scribe. Based on total visit time, I have performed more than 50% of this visit. Objective - Vital Signs Vital signs: Vital Signs Temp 98.4 F 04/18/22 13:35 Pulse 77 04/18/22 13:35 Resp 20 04/18/22 13:35 BP 114/74 04/18/22 13:35 Pulse Ox 100 04/18/22 13:35 FiO2 Intake & Output 04/17/22 04/18/22 04/18/22 18:59 06:59 18:59 Intake Total 236 Output Total 2 Balance -2 236 Intake: Oral 236 Output: Emesis 2 Other: Voiding Method Toilet # Voids 1 3 - Labs CBC & Chem 7: 04/17/22 03:24 04/17/22 03:24 Labs: Microbiology - Last 24 Hours (Table) 04/15/22 20:59 Gram Stain - Final Finger - Left Third Wound Culture - Final Staphylococcus aureus 04/17/22 03:24 Blood Culture - Preliminary Blood No Growth after 24 hours 04/15/22 17:17 Blood Culture Gram Stain - Preliminary Blood 04/15/22 17:01 Blood Culture Gram Stain - Final Blood Blood Culture - Final Micrococcus species Assessment and Plan Time with Patient: Less than 30
--- NOTE | 2022-04-18 23:45 | P.PN ---
Subjective Progress Note Date: 04/18/22 Principal diagnosis: Left middle finger and hand cellulitis patient is a 31-year-old female who is currently 12 weeks presenting to the hospital for evaluation of left middle finger swelling and redness apparently started about 4 days ago before presentation to the hospital, patient local cultures currently showing staph aureus and also have a positive blood culture On today's evaluation that is 04/18/2022 the patient remains to be afebrile, the patient left arm swelling redness is slightly decreased the patient has developed an itchy rash on the dorsum aspect of the left hand at the base of the third finger denies any further problem with the cefazolin infusion Objective - Vital Signs Vital signs: Vital Signs Temp 98.1 F 04/18/22 07:15 Pulse 79 04/18/22 07:15 Resp 16 04/18/22 07:15 BP 107/70 04/18/22 07:15 Pulse Ox 99 04/18/22 07:15 FiO2 Intake & Output 04/17/22 04/18/22 04/18/22 18:59 06:59 18:59 Output Total 2 Balance -2 Output: Emesis 2 Other: Voiding Method Toilet # Voids 1 3 - Exam GENERAL DESCRIPTION: Middle-age female lying in bed in no distress RESPIRATORY SYSTEM: Unlabored breathing , decreased breath sounds at bases HEART: S1 S2 regular rate and rhythm , ABDOMEN: Soft , no tenderness EXTREMITIES: Left middle finger and left arm swelling redness slightly decreased - Labs CBC & Chem 7: 04/17/22 03:24 04/17/22 03:24 Labs: Microbiology - Last 24 Hours (Table) 04/17/22 03:24 Blood Culture - Preliminary Blood No Growth after 24 hours 04/15/22 20:59 Gram Stain - Preliminary Finger - Left Third Wound Culture - Preliminary Presumptive Staph aureus 04/15/22 17:17 Blood Culture Gram Stain - Preliminary Blood 04/15/22 17:01 Blood Culture Gram Stain - Final Blood Blood Culture - Final Micrococcus species Assessment and Plan (1) Cellulitis of left hand Current Visit: Yes Status: Acute Code(s): L03.114 - CELLULITIS OF LEFT UPPER LIMB SNOMED Code(s): 72221157 (2) Cellulitis of left middle finger Current Visit: Yes Status: Acute Code(s): L03.012 - CELLULITIS OF LEFT FINGER SNOMED Code(s): 05191713 Plan: 1patient presented to hospital with left middle finger abscess and cellulitis spreading to the left arm area likely from gram-positive skin adriano patient is not at risk factor for MRSA infection and with some improvement in the cellulitis with Rocephin and clinda could be MSSA. 2patient who is currently 12 weeks , limiting number of antibiotics safe to use. 3patient local culture with staph aureus possible MSSA blood culture with the micrococcus likely contaminate will wait for repeat blood cultures to finalize 4we will apply hydrocortisone cream to the rash on the dorsal aspect of the left hand. 5patient to continue cefazolin 2 g every 8 hours and hopefully finishing therapy with oral Keflex and close outpatient follow-up Time with Patient: Less than 30
[2022-04-19] MEDS: DOCUSATE 100 MG CAP PO SCH ×2 (10:59→21:17)
[2022-04-19] MEDS: FAMOTIDINE 20 MG TAB PO SCH ×2 (11:00→21:18)
[2022-04-19] MEDS: PRENATAL VIT-IRON-FOLIC ACID 1 EACH TABLET PO SCH (11:00)
[2022-04-19] MEDS: SODIUM CHLORIDE 0.9% 1,000 ML IV SCH ×3 (11:01→21:18)
--- NOTE | 2022-04-19 22:55 | P.PN ---
Subjective Progress Note Date: 04/19/22 Principal diagnosis: Left middle finger and hand cellulitis patient is a 31-year-old female who is currently 12 weeks presenting to the hospital for evaluation of left middle finger swelling and redness apparently started about 4 days ago before presentation to the hospital, patient local cultures currently showing staph aureus and also have a positive blood culture On today's evaluation that is 04/19/2022 the patient continues to be afebrile, the patient left middle finger as well as arm swelling redness has decreased however the patient has developed a rash which seemed to have extended to the left forearm and also has some rash on the right arm and not on the trunk and no difficulty breathing or tongue swelling Objective - Vital Signs Vital signs: Vital Signs Temp 98.3 F 04/19/22 07:10 Pulse 96 04/19/22 07:10 Resp 16 04/19/22 07:10 BP 113/68 04/19/22 07:10 Pulse Ox 99 04/19/22 07:10 FiO2 Intake & Output 04/18/22 04/19/22 04/19/22 18:59 06:59 18:59 Intake Total 236 118 Balance 236 118 Intake: Oral 236 118 Other: Voiding Method Toilet # Voids 1 3 # Bowel Movements 1 1 - Exam GENERAL DESCRIPTION: Middle-age female lying in bed in no distress RESPIRATORY SYSTEM: Unlabored breathing , decreased breath sounds at bases HEART: S1 S2 regular rate and rhythm , ABDOMEN: Soft , no tenderness EXTREMITIES: Left middle finger and left arm swelling redness has decreased however the patient developed a macular rash bilateral upper extremity - Labs CBC & Chem 7: 04/17/22 03:24 04/17/22 03:24 Labs: Microbiology - Last 24 Hours (Table) 04/17/22 03:24 Blood Culture - Preliminary Blood No Growth after 48 hours 04/15/22 17:17 Blood Culture Gram Stain - Final Blood Blood Culture - Final Micrococcus species 04/15/22 20:59 Gram Stain - Final Finger - Left Third Wound Culture - Final Staphylococcus aureus Assessment and Plan (1) Cellulitis of left hand Current Visit: Yes Status: Acute Code(s): L03.114 - CELLULITIS OF LEFT UPPER LIMB SNOMED Code(s): 56700669 (2) Cellulitis of left middle finger Current Visit: Yes Status: Acute Code(s): L03.012 - CELLULITIS OF LEFT FINGER SNOMED Code(s): 14669234 Plan: 1patient presented to hospital with left middle finger abscess and cellulitis spreading to the left arm area likely from gram-positive skin adriano patient is not at risk factor for MRSA infection and with some improvement in the cellulitis with Rocephin and clinda could be MSSA. 2patient who is currently 12 weeks , limiting number of antibiotics safe to use. 3patient local culture with staph aureus possible MSSA blood culture with the micrococcus likely contaminate will wait for repeat blood cultures to finalize 4with concern for possible drug rash cefazolin has been discontinued keeping in mind the patient is 12 weeks patient had been started on daptomycin and will see clinical response discussed with the medical team Time with Patient: Less than 30
--- NOTE | 2022-04-19 22:57 | P.PN ---
Subjective Progress Note Date: 04/19/22 This is a 31 year old female who is at 12 weeks gestation. She reports to the hospital with complaint of left middle finger swelling that began about 4 days ago progressively getting worse with streaks up her arm. She has significant pain and reports feeling the pain up into the left axilla and through the left breast and chest. She does report feeling dizzy and lightheaded and overall not well. Prior history of staph infection she states about 14 years ago, denies MRSA. This is her 5th , with 3 live births, prior history of . Patient has placenta previa and has vaginal bleeding with last ultrasound being 1 week ago she undergoes routine ultrasound every 2 weeks. Patient follows with real estate instructor out of [place] and was supposed to see today. No transvaginal ultrasounds. On admission sodium level 135, hgb stable at 13.4, no white count. Urine showing small blood trace protein. She is afebrile, blood pressure 93/61. Cultures are taken and patient is given a dose of clindamycin and ceftriaxone. Consult is placed to infectious disease services. Blood culture x 2 also taken. She is receiving vitamin and also gentle hydration. Will be started patient on pepcid BID for prophylaxis. 04/17/2022 Patient is evaluated today resting in bed continues to report intermittent feelings of dizzines and also nausea. Zofran has been ordered. Blood cultures are showing micrococcus species and also presumptive staph aureus from left third finger. Repeat blood cultures taken today. Continues on IV hydration, infectious disease is following. Patient has been placed on IV cefazolin. Today she complains of itching and is given oral benadryl. There was concern by nursing for progression of rash and for this reason cefazolin has been stopped. Pending recommendations from ID regarding antibiotic coverage. Sodium improved to 137. Blood pressure 97/58. OB will be consulted as well. 04/18/2022 Patient is evaluated today on medical floor. Continues on IV cefazolin. Has rash developing to left middling finger. Blood culture showing micrococcus species. Wound culture showing staphylococcus aureus. Repeat blood cultures pending. Infectious disease following. Continue with tylenol and benadryl for headache. 04/19/2022 Patient has developed vesicular rash right hand mostly with some smaller vessicles left hand. [place] likely patient has allergy to cefazolin. She reports receiving antibiotics with all of her child births and has not had any allergies to antiobiotics in the past. Patient to continues with hydrocortisone and benadryl. Headache control with tylenol. Repeat blood culture negative at 48 hours. Patient has been taken of cefazolin and started on daptomycin. Review of Systems Constitutional: Denies fever, reports headache Cardio vascular: denied any chest pain, palpitations Gastrointestinal: denied any vomiting, diarrhea, reports nausea Pulmonary: Denied any shortness of breath cough Neurologic denied any new focal deficits All inpatient medications were reviewed and appropriate changes in these medications as dictated in the interval history and assessment and plan. PHYSICAL EXAMINATION: GENERAL: The patient is alert and oriented x3, not in any acute distress. Well developed, well nourished. HEENT: Pupils are round and equally reacting to light. EOMI. No scleral icterus. No conjunctival pallor. Normocephalic, atraumatic. No pharyngeal erythema. No thyromegaly. CARDIOVASCULAR: S1 and S2 present. No murmurs, rubs, or gallops. PULMONARY: Chest is clear to auscultation, no wheezing or crackles. ABDOMEN: Soft, nontender, nondistended, normoactive bowel sounds. No palpable organomegaly. MUSCULOSKELETAL: No joint swelling or deformity. EXTREMITIES: No cyanosis, clubbing, or pedal edema. NEUROLOGICAL: Gross neurological examination did not reveal any focal deficits. SKIN: No rashes. The left middle finger with significant erythema and swelling. Swelling has improved. Developed a vesicular rash to the left middle finger Assessment and Plan Assessment Left upper extremity cellulitis and abscess left middle finger with sepsis, present on admission Gram positive bacteremia possible contaminent. Placenta Previa at 13 weeks gestation Hyponatremia hypovolemic, resolved GI prophylaxis DVT prophylaxis SCDs Full Code Plan Continue IV hydration Continue IV antibiotics with daptomycin. Continue with antiemetics and benadryl Continue all other supportive care Possible D/C in the next 24 hours The impression and plan of care has been dictated by Christiana Mulligan Nurse Practitioner as directed. Dr. Veronica MD I have performed a history and physical examination and medical decision making of this patient, discussed the same with the dictator, and agree with the dictators assessment and plan as written, documented as a scribe. Based on total visit time, I have performed more than 50% of this visit. Objective - Vital Signs Vital signs: Vital Signs Temp 98.0 F 04/19/22 13:46 Pulse 79 04/19/22 13:46 Resp 20 04/19/22 13:46 BP 99/64 04/19/22 13:46 Pulse Ox 100 04/19/22 13:46 FiO2 Intake & Output 04/18/22 04/19/22 04/19/22 18:59 06:59 18:59 Intake Total 236 118 Balance 236 118 Intake: Oral 236 118 Other: Voiding Method Toilet # Voids 1 3 # Bowel Movements 1 1 - Labs CBC & Chem 7: 04/17/22 03:24 04/17/22 03:24 Labs: Microbiology - Last 24 Hours (Table) 04/17/22 03:24 Blood Culture - Preliminary Blood No Growth after 48 hours 04/15/22 17:17 Blood Culture Gram Stain - Final Blood Blood Culture - Final Micrococcus species 04/15/22 20:59 Gram Stain - Final Finger - Left Third Wound Culture - Final Staphylococcus aureus Assessment and Plan Time with Patient: Less than 30
[2022-04-20 07:45] VITALS: BP 91/52; PULSE 78; RESP 16; TEMP 98.6
[2022-04-20] MEDS: FAMOTIDINE 20 MG TAB PO SCH (09:15)
[2022-04-20] MEDS: DOCUSATE 100 MG CAP PO SCH (09:15)
[2022-04-20] MEDS: PRENATAL VIT-IRON-FOLIC ACID 1 EACH TABLET PO SCH (09:15)
[2022-04-20 10:54] LABS: ALT 28 U/L (8-44); AST 24 U/L (13-35); Albumin 3.6 g/dL (3.8-4.9); Alkaline Phosphatase 54 U/L (41-126); BUN/Creat Ratio 20.31 Ratio (12.00-20.00); Blood Urea Nitrogen 9.1 mg/dL (9.0-27.0); Calcium 8.9 mg/dL (8.7-10.3); Carbon Dioxide 21.2 mmol/L (20.0-27.5); Chloride 104 mmol/L (96-109); Globulin 2.1 g/dL (1.6-3.3); Glucose 78 mg/dL (70-110); Non-African American GFR(CKD) 132.9 (60.0-200.0); Sodium 136 mmol/L (135-145); Total Bilirubin <0.15 mg/dL (0.30-1.20); Total Protein 5.7 g/dL (6.2-8.2)
[2022-04-20 11:53] LABS: Basophils # (A) 0.04 X 10*3/uL (0.00-0.10); Basophils % (A) 0.7 %; Eosinophils # (A) 0.09 X 10*3/uL (0.04-0.35); Eosinophils % (A) 1.5 %; HCT 36.7 % (37.2-46.3); HGB 12.6 g/dL (12.0-15.0); Immature Grans, Automated 2.1 %; Lymphocytes # (A) 1.26 X 10*3/uL (0.90-5.00); Lymphocytes % (A) 21.7 %; MCH 30.7 pg (27.0-32.0); MCHC 34.3 g/dL (32.0-37.0); MCV 89.3 fL (80.0-97.0); Mean Platelet Volume 8.9 fL (9.5-12.2); Monocytes # (A) 0.58 X 10*3/uL (0.20-1.00); NRBC Per 100 WBC 0 /100 WBCS (0.0-0.0); Neutrophils # (A) 3.72 X 10*3/uL (1.80-7.70); Platelet Count 283 X 10*3/uL (140-440); RBC 4.11 X 10*6/uL (4.10-5.20); RDW 12.9 % (11.5-14.5); WBC 5.81 X 10*3/uL (4.50-10.00)
[2022-04-20] MEDS ORDERED: predniSONE 20 MG TAB PO STA (12:16)
--- NOTE | 2022-04-20 15:34 | P.DS ---
Providers Date of admission: 04/17/22 11:23 Attending physician: Patricia Segundo Consults: 04/16/22 04:51 Consult Physician Routine Consulting Provider: Damon Kathleen Consult Reason/Comments: Cellulitis Do you want consulting provider notified?: Yes, Notify in am 04/17/22 09:48 Consult Physician Routine Consulting Provider: Leslie Liao Consult Reason/Comments: 12 weeks , history of placenta previa this Do you want consulting provider notified?: Yes Primary care physician: Stated None Hospital Course: Final Diagnosis Left upper extremity cellulitis and abscess left middle finger with sepsis, present on admission Micrococcus bacteremia most likely contaminent repeat blood culture negative Rash and itching, dizziness, headache mostly likely allergic reaction to cefazolin Placenta Previa at 13 weeks gestation Hyponatremia hypovolemic, resolved Possible history lupus, patient maintained on methotrexate in the past Full Code Discharge Disposition Patient is stable for discharge home. Cleared by infectious disease. Recommend no antibiotics on discharge. Patient will be discharged on medrol dose pack, hydrocortisone cream, and also pepcid for possible allergic reaction to cefazolin. Patient will follow up with her regional construction manager as previously recommended, primary care. Patient is also referred to dermatology and rheumatology on discharge. Hospital Course This is a pleasant 31 year old female, 13 weeks of gestation, history of placenta previa this . Reports with left middle finger swelling that began about 4 days ago progressively getting worse with streaks up her arm. She has significant pain and reports feeling the pain up into the left axilla and through the left breast and chest. She does report feeling dizzy and lightheaded and overall not well. Prior history of staph infection she states about 14 years ago, denies MRSA. This is her 5th , with 3 live births, prior history of . Patient has placenta previa and has vaginal bleeding with last ultrasound being 1 week ago she undergoes routine ultrasound every 2 weeks. Patient follows with regional construction manager out of [place]. No transvaginal ultrasounds. Also reports prior history of possible lupus and was following with pathology lab technician and maintained on methotrexate, currently not taking. She has not officially been diagnosed with lupus. On admission sodium level 135, hgb stable at 13.4, no white count. Urine showing small blood trace protein. She is afebrile, blood pressure 93/61. Cultures are taken and patient is given a dose of clindamycin and ceftriaxone. Patient was admitted to medical floor and started on IV cefazolin by infectious disease. Culture of finger showing staphylococcus aureus. Initial blood cultures showing micrococcus which is thought to be contaminant as patient had repeat culture which is negative. Patient developed secondary to rash with small waxy bumps mostly starting from left third finger spreading to dorsal aspect of hand. Patient also develop them on her right hand. None on her arms, back, chest, abdomen, legs or feet. She also develops erythema to her face mostly across her cheeks, also dizziness and headache. Patients limits drug choices. She received tylenol and benadryl for headache and hydrocortisone cream for rash which did not improve. She was also evaluated by OB routinely and had transabdominal ultrasound performed measuring gestation at 13 weeks 5 days ago and low lying placenta 0.8 cm from internal OS. Patient is not currently experiencing vaginal bleeding. Antibiotics adjusted to IV daptomycin with further improvement in swelling and erythema to localized wound left third finger. Patient has remained afebrile, no white count. For this reason Infectious disease recommended to discharge and mon itor closely off antibiotics. Patient is referred to dermatology and rheumatology on discharge. Discussed with customs and border protection officer OB and patient will be discharged on medrol dose pack as well. 04/20/2022 Patient is evaluated today on medical floor with her at bedside. She reports overall feeling better today. She wants to go home. She continues to show improvement to original wound with cellulitis to her left third finger. Continues with secondary rash to the left hand and right hand. She denies shortness of breath, denies chest pain. Denies nausea, vomiting, diarrhea. Continues with mild dull headache. Patients most recent labs are showing white count of 5.81, hgb 12.6, sodium 136, potassium 4.0, BUN 9.1, creatinine 0.4, glucose 78, calcium 8.9. CRP was improved to 1.70. Albumin 3.6. UA negative. She has remained afebrile, heart rate 78, blood pressure 91/52, 98% room air. Encourage to increase oral fluid intake. Lungs are clear, s1 s2 auscultated. Focal neurological exam is negative. Alert x3. Discharge home today. Please see medication reconciliation for a list of current medication. Thank you for allowing us to participate in the care of this patient. The impression and plan of care has been dictated by Christiana Mulligan Nurse Practitioner as directed. Dr. Veronica MD I have performed a history and physical examination and medical decision making of this patient, discussed the same with the dictator, and agree with the dictators assessment and plan as written, documented as a scribe. Based on total visit time, I have performed more than 50% of this visit. Patient Condition at Discharge: Good Plan - Discharge Summary Discharge Rx Participant: No New Discharge Prescriptions: New diphenhydrAMINE [Benadryl] 25 mg PO TID PRN cap PRN Reason: Itching Docusate [Colace] 100 mg PO BID #60 cap Hydrocortisone Cream [Hydrocortisone 1% Cream] 1 applic TOPICAL TID PRN #1 each PRN Reason: Skin Irritation Famotidine [Pepcid] 20 mg PO DAILY #15 tab Acetaminophen Tab [Tylenol] 650 mg PO Q6HR PRN tab PRN Reason: Fever And/ Or Pain methylPREDNISolone [Medrol Dose Pack] 0 mg PO DIRECTED #1 packet Continue [id number] Acid [-U Capsule (formulary)] 1 cap PO DAILY Discharge Medication List [id number] Acid [-U Capsule (formulary)] 1 cap PO DAILY 04/15/22 [History] Acetaminophen Tab [Tylenol] 650 mg PO Q6HR PRN tab 04/19/22 [Rx] Docusate [Colace] 100 mg PO BID #60 cap 04/19/22 [Rx] Famotidine [Pepcid] 20 mg PO DAILY #15 tab 04/19/22 [Rx] Hydrocortisone Cream [Hydrocortisone 1% Cream] 1 applic TOPICAL TID PRN #1 each 04/19/22 [Rx] diphenhydrAMINE [Benadryl] 25 mg PO TID PRN cap 04/19/22 [Rx] methylPREDNISolone [Medrol Dose Pack] 0 mg PO DIRECTED #1 packet 04/20/22 [Rx] Follow up Appointment(s)/Referral(s): Luis Manuel Palacio MD [STAFF PHYSICIAN] - 1 Week None,Stated [Primary Care Provider] - 1-2 days Eliz Saldaña MD [STAFF PHYSICIAN] - 1 Week Damon Kathleen MD [STAFF PHYSICIAN] - 1 Week Activity/Diet/Wound Care/Special Instructions: Patient needs to follow up with primary care provider Continue close follow up with OB out of [facility] Continue pepcid while on oral antibiotics Continue hydrocortisone cream to localized skin irritation Complete oral antibiotics Follow up with rheumatology and dermatology on discharge Discharge Disposition: HOME SELF-CARE
== END 2022-04-20 13:00 | disposition home or self-care (01) | DRG 831 ==
LOC: EC 14:02 → 6NMEDSUR 18:42 → OBSVTOIN 04-17 11:23
PROVIDERS: ADMIT Hospitalist; ATTEND Hospitalist
DX: O98.811 Other maternal infectious and parasitic diseases complicating pregnancy, first trimester (principal); A41.01 Sepsis due to Methicillin susceptible Staphylococcus aureus; O44.11 Complete placenta previa with hemorrhage, first trimester; E87.1 Hypo-osmolality and hyponatremia; L03.114 Cellulitis of left upper limb; L02.512 Cutaneous abscess of left hand; O99.711 Diseases of the skin and subcutaneous tissue complicating pregnancy, first trimester; Z3A.12 12 weeks gestation of pregnancy; L03.012 Cellulitis of left finger; I88.9 Nonspecific lymphadenitis, unspecified; O34.219 Maternal care for unspecified type scar from previous cesarean delivery; R51.9 Headache, unspecified; O99.281 Endocrine, nutritional and metabolic diseases complicating pregnancy, first trimester; E86.1 Hypovolemia; L27.0 Generalized skin eruption due to drugs and medicaments taken internally; T36.1X5A Adverse effect of cephalosporins and other beta-lactam antibiotics, initial encounter; Z86.19 Personal history of other infectious and parasitic diseases; Z87.59 Personal history of other complications of pregnancy, childbirth and the puerperium; Z87.39 Personal history of other diseases of the musculoskeletal system and connective tissue
CPT/HCPCS: 36415; 76801; 80053; 81001; 83605; 85025; 86140; 87040; 87070; 87075; 87077; 87186; 87205; 96365; 96366; 96375; 99284